=== PATIENT | male | born 1945 | race Caucasian/White ===

== ENCOUNTER 2017-04-28 17:22 | Emergency (ER) | payer OTHER, MEDICARE ==
[2017-04-28 17:38] VITALS: BMI 29.8
--- NOTE | 2017-04-28 17:57 | CT ---
HISTORY: Trauma status post fall. Study: CT brain without contrast Comparison: None. Technique: Multiple axial images of the brain were obtained from the skull base to the vertex without administra tion of IV contrast. Dose reduction techniques including Automated Exposure Control (AEC) and adjust ment of mA and kV were utilized. Findings: Age-related cortical atrophy and chronic small vessel ischemic changes. Posterior right occipital hem atoma. No acute intraparenchymal hemorrhage or mass can be identified. No extra-axial fluid collecti ons are seen. No alteration in the attenuation of the brain parenchyma can be identified to suggest acute or subacute ischemic change. The ventricular system is symmetric and nondilated. The extracra nial structures are grossly unremarkable. IMPRESSION: No obvious acute intracranial pathology. If clinically concerned for acute ischemia/infar ction, MRI brain is more sensitive. Reported By:
[2017-04-28] MEDS ORDERED: HYDROGEN PEROXIDE 3% ONE (18:05)
--- NOTE | 2017-04-28 18:25 | DR.LACERAT ---
HPI - Time Seen Time seen: 17:35 - Primary Care Physician Primary Care Physician: ELIE ACHARYA - HPI Comment HPI Comment: He lost his footing and fell backwards, striking his head on the frame (metal) of another truck. He denies LOC. 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 Self Treatment fo Chief Complaint: PT REC'D THIS INJURY A FEW HOURS AGO BUT, THE BLOOD WOULD NOT STOP AND THE PAIN GOT WORSE.. - Reviewed Nurses Notes Reviewed: Yes - Source History Provided: Patient - Mode of Arrival Mode of Arrival: Ambulatory - Timing Onset of Chief Complaint: 04/28/17 - Context Mechanism: Blunt Trauma, Fall, Metal Tetanus Vaccination: Unknown - Severity Pain Severity: Moderate Bleeding:: Controlled - Associated Signs and Symptoms Associated Signs and Symptoms: None PMH - PMH Past Medical History: Yes Past Medical History: Coronary Artery Disease, Dyslipidemia, Hypertension, [place] Past Surgical History: Yes Past Surgical History Comment: PACEMAKER , STENT PLACEMENT.. - Family History History of Family Medical Conditions: No - Social History Does patient currently use any type of tobacco product: No Have you used tobacco products in the last 12 months: No Type of Tobacco Use: None Does any household member use tobacco: No Alcohol Use: None Do you use any recreational Drugs:: No Lives With: Family Lives Where: Home - infectious screening In the last 2 months have you had wt loss of >10#?: NO Have you had fever, night sweats or hemotysis?: No Have you traveled outside the country in the last 6 months?: No Isolation: Standard ROS - Review of Systems Constitutional: No Symptoms Reported Eyes: No Symptoms Reported ENTM: No Symptoms Reported Respiratoy: No Symptoms Reported Cardiovascular: No Symptoms Reported Gastrointestinal/Abdominal: No Symptoms Reported Genitourinary: No Symptoms Reported Neurological: No Symptoms Reported Musculoskeletal: No Symptoms Reported Integumentary: Other (scalp laceration) Hematologic/Lymphatic: No Symptoms Reported Endocrine: No Symptoms Reported Psychiatric: No Symptoms Reported All Other Systems: Reviewed and Negative PE - Vital Signs Vitals: Temperature 97.9 F Pulse Rate 69 Respiratory Rate 18 Blood Pressure [] 139/81 Blood Pressure 162/92 O2 Sat by Pulse Oximetry 96 - General Limitations: No Limitations General Appearance: Alert, In No Apparent Distress - Head Head Exam: Normal Inspection - Eyes Eye exam: Normal Appearance - ENT ENT Exam: Normal Exam - Neck Neck Exam: Normal Inspection - Chest Chest Inspection: Normal Inspection - Respiratory Respiratory Exam: Normal Lung Sounds Bilat - Cardiovascular Cardiovascular Exam: Regular Rate, Normal Rhythm - Abdominal Exam Abdominal Exam: Normal Inspection, Normal Bowel Sounds, Soft - Extremities Extremities Exam: Normal Inspection - Back Back Exam: Normal Inspection - Neurologic Neurological Exam: Alert, Oriented X3, CN II-XII Intact - Psychiatric Psychiatric Exam: Normal Affect, Normal Mood - Skin Skin Exam: Warm, Normal Color, Other (J shaped scalp laceration at right tempo- occipital area.) Type of Lesion: Laceration Distribution: Head ROR - XRAY XRAY Interpreted by: Radiologist (no acute intracranial pathology.) Procedures - Laceration/Wound Repair Occipital Wound's Depth, Shape: Superficial Wound Explored: no foreign body removed Irrigated w/ Saline (ccs): 2 Betadine Prep?: Yes Anesthesia: 1% Lidocaine Volume Anesthetic (ccs): 8 Number of Sutures: 8 (alexander) Layer Closure?: No - Diagnosis Discharge Problem: Laceration of scalp, Headache, Fall - Discharge Plan Disposition: 01 HOME, SELF-CARE Condition: Stable - Follow ups/Referrals Follow ups/Referrals: DILLON DELGADILLO [Primary Care Provider] - 3 days - Instructions Instructions: Laceration Care, Adult, [id number]
[2017-04-28] MEDS ORDERED: NUBAIN INJ 200 MG VIAL MULTIDOSE IM ONE (18:31)
[2017-04-28] MEDS ORDERED: NUBAIN INJ 10 ONE (18:34)
[2017-04-28 18:35] VITALS: BP 139/81
[2017-04-28] MEDS ORDERED: ADACEL TDaP IM ONE ×2 (18:35→18:39)
== END 2017-04-28 19:02 | disposition home or self-care (01) ==
LOC: ER 17:37
PROC: 0WQ00ZZ Repair Head, Open Approach (ICD-10-PCS; principal; 2017-04-28)
DX: S01.01XA Laceration without foreign body of scalp, initial encounter (principal); R51 Headache; W19.XXXA Unspecified fall, initial encounter; Y92.9 Unspecified place or not applicable; X58.XXXA Exposure to other specified factors, initial encounter
CPT/HCPCS: 12002; 70450; 90471; 96372; 99282; J2300